=== PATIENT | male | born 1995 | race African-American/Black ===

== ENCOUNTER 2017-03-27 19:01 | Emergency (ER) | payer OTHER ==
[~2017-03-27] VITALS: Ht 170.2 cm; Wt 81.6 kg
[2017-03-27] MEDS ORDERED: IOHEXOL 240 MG/ML 50ML VIAL. ONE (19:39)
[2017-03-27] MEDS ORDERED: fentaNYL PF 100 MCG/2 ML VIAL IV PRN (19:45)
[2017-03-27] MEDS ORDERED: ONDANSETRON PF 4 MG/2 ML VIAL. IV ONE (19:45)
[2017-03-27] MEDS ORDERED: IV NORMAL SALINE 1,000ML 1,000 ML IV ONE (19:45)
[2017-03-27] MEDS ORDERED: IOHEXOL 300 MG/ML 75 ML VIAL. IV ONE (19:45)
[2017-03-27 19:52] LABS: BASO # 0.1 x10^3/uL (0.0-0.2); BASO % 1 % (0-3); EOS # 0.1 x10^3/uL (0.0-0.7); EOS % 2 % (0-3); HEMATOCRIT 39.9 % (39.0-53.0); HEMOGLOBIN 13.2 g/dL (13.0-17.5); LYMPH # 1.7 x10^3/uL (1.0-4.8); LYMPH % 20 % (24-48); MEAN CORPUSCULAR HEMOGLOBIN 29 pg (25-35); MEAN CORPUSCULAR HGB CONC 33 g/dL (31-37); MEAN CORPUSCULAR VOLUME 88 fL (79-100); MONO # 0.6 x10^3/uL (0.0-1.1); MONO % 7 % (0-9); NEUT # 6.2 x10^3uL (1.8-7.7); NEUT % 71 % (31-73); PLATELET COUNT 158 x10^3/uL (140-400); RED BLOOD COUNT 4.51 x10^6/uL (4.30-5.70); WHITE BLOOD COUNT 8.6 x10^3/uL (4.0-11.0)
[2017-03-27 19:57] LABS: CALCIUM 8.8 mg/dL (8.5-10.1); CREATININE 1.4 mg/dL (0.7-1.3); GFR 76.7; POTASSIUM 3.7 mmol/L (3.5-5.1)
[2017-03-27 19:58] LABS: FECAL OB PT NEGATIVE (NEG)
[2017-03-27 21:01] LABS: BILIRUBIN,URINE NEG (NEG); CLARITY,URINE HAZY; COLOR,URINE YELLOW; GLUCOSE,URINE NEG (NEG); NITRITE,URINE NEG (NEG); UROBILINOGEN,URINE 0.2 mg/dL (0.2 mg/dL)
[2017-03-27 21:02] LABS: BACTERIA,URINE FEW /HPF (0-FEW)
--- NOTE | 2017-03-27 21:24 | RAD ---
PROCEDURE CT abdomen and pelvis with contrast. HISTORY Inguinal hernia. Pain and swelling in lower abdomen for 1 week. TECHNIQUE Axial images and coronal and sagittal re-formatted images are provided. Oral contrast and 75 milliliters of intravenous Omnipaque 300 was administered without complication. Second series was obtained to include the entirety of the left inguinal hernia. One or more of the following individualized dose reduction techniques were utilized for this exam: 1. Automated exposure control. 2. Adjustment of the mA and/or kV according to patient's size. 3. Use of iterative reconstruction technique. COMPARISON None. FINDINGS There is atelectasis in the lung bases. There is no pleural effusion. The heart is not enlarged. Liver, gallbladder, spleen, pancreas, and adrenals are all grossly unremarkable. Kidneys are symmetrically perfused. There are areas of decreased attenuation within the renal parenchyma bilaterally, somewhat striated in appearance. There is no adjacent stranding. Please correlate with any concern for pyelonephritis and correlate with UA/UC. Aorta is normal caliber. There is no bowel obstruction or mural thickening. Normal appendix is probably visualized. Colon is grossly unremarkable. Bladder and prostate are unremarkable. Calcified phleboliths are noted. There are postsurgical changes in the proximal right femur. Partially included on the initial series is prominent fat in the left inguinal canal. This was covered completely on the repeat series. Repeat series demonstrates fat containing left inguinal hernia, with some stranding. There is also either fluid within the hernia sac or a hydrocele. Ultrasound may better evaluate this finding. IMPRESSION - Striated appearance to the kidneys with areas of decreased enhancement within the renal cortices bilaterally, appearance can be secondary to pyelonephritis, correlate with exam findings and UA/UC. - Fat containing left inguinal hernia. There is no herniated bowel loop. There is some stranding of the herniated fat and potentially fluid within the hernia sac versus hydrocele. Incarcerated herniated fat cannot be excluded. Please correlate clinically. Ultrasound may be of benefit. Electronically signed by: Bebeto Garza MD (March 27, 2017 21:23:50)
--- NOTE | 2017-03-27 22:19 | PHYS DOC ---
Past History Past Medical History: IBS Alcohol Use: None Drug Use: None Adult General Chief Complaint Chief Complaint: ABDOMINAL PAIN HPI HPI Patient is a 22 year old male who presents with increased pain to inguinal hernia. The patient states he was diagnosed with inguinal hernia last week at [facility]. Today he rolled over in bed & felt increased pain, unable to reduce hernia. He denies fevers/chills, vomiting, abdominal pain, dysuria, hematuria. Had a bowel movement today. he also reports blood in his stools, watery bright red blood x 3 days. No hematemesis. Denies use of blood thinners. He was supposed to have elective hernia repair but there were complications in scheduling as he is incarcerated. Denies history of abdominal surgeries. Review of Systems Review of Systems Constitutional: Denies fever or chills HENT: Denies nasal congestion or sore throat Respiratory: Denies cough or shortness of breath Cardiovascular: Denies chest pain GI: Denies abdominal pain, nausea, vomiting, bloody stools or diarrhea : Denies dysuria or hematuria, reports pain to hernia. Musculoskeletal: Denies back pain or joint pain Integument: Denies rash s Neurologic: Denies headache Allergies Allergies Allergies Coded Allergies Type Severity Reaction Last Updated Verified No Known Drug Allergies 03/27/17 No Physical Exam Physical Exam Constitutional: Well developed, well nourished, no acute distress, non-toxic appearance. HENT: Normocephalic, atraumatic, bilateral external ears normal, oropharynx moist, nose normal. Eyes: conjunctiva normal, no discharge. Cardiovascular: RRR, no murmurs, no edema. Lungs & Thorax: LCTAB, no wheezing, no respiratory distress. Abdomen: normal bowel sounds, soft, nontender, nondistended. : left scrotal tenderness & swelling with left inguinal fullness & tenderness. unable to reduce hernia. Skin: Warm, dry, no erythema, no rash. Back: No CVA tenderness. Extremities: No tenderness, no edema. Neurologic: Alert and oriented X 3, no focal deficits noted. Psychologic: Affect normal, judgement normal, mood normal. Current Patient Data Vital Signs Vital Signs Date Time Temp Pulse Resp B/P (MAP) Pulse Ox O2 Delivery O2 Flow Rate FiO2 03/27/17 19:01 97.8 60 18 100 Room Air Lab Results Laboratory Tests Test 03/27/17 19:25 03/27/17 19:36 03/27/17 20:13 Stool Occult Blood Negative (NEG) White Blood Count 8.6 x10^3/uL (4.0-11.0) Red Blood Count 4.51 x10^6/uL (4.30-5.70) Hemoglobin 13.2 g/dL (13.0-17.5) Hematocrit 39.9 % (39.0-53.0) Mean Corpuscular Volume 88 fL (79-100) Mean Corpuscular Hemoglobin 29 pg (25-35) Mean Corpuscular Hemoglobin Concent 33 g/dL (31-37) Red Cell Distribution Width 14.0 % (11.5-14.5) Platelet Count 158 x10^3/uL (140-400) Neutrophils (%) (Auto) 71 % (31-73) Lymphocytes (%) (Auto) 20 % (24-48) L Monocytes (%) (Auto) 7 % (0-9) Eosinophils (%) (Auto) 2 % (0-3) Basophils (%) (Auto) 1 % (0-3) Neutrophils # (Auto) 6.2 x10^3uL (1.8-7.7) Lymphocytes # (Auto) 1.7 x10^3/uL (1.0-4.8) Monocytes # (Auto) 0.6 x10^3/uL (0.0-1.1) Eosinophils # (Auto) 0.1 x10^3/uL (0.0-0.7) Basophils # (Auto) 0.1 x10^3/uL (0.0-0.2) Sodium Level 145 mmol/L (136-145) Potassium Level 3.7 mmol/L (3.5-5.1) Chloride Level 108 mmol/L (98-107) H Carbon Dioxide Level 29 mmol/L (21-32) Anion Gap 8 (6-14) Blood Urea Nitrogen 13 mg/dL (8-26) Creatinine 1.4 mg/dL (0.7-1.3) H Estimated GFR (Cockcroft-Gault) 76.7 Glucose Level 90 mg/dL (70-99) Calcium Level 8.8 mg/dL (8.5-10.1) Urine Collection Type Unknown Urine Color Yellow Urine Clarity Hazy Urine pH 6.5 Urine Specific [place] 1.010 Urine Protein Trace (NEG-TRACE) Urine Glucose (UA) Neg mg/dL (NEG) Urine Ketones (Stick) Neg mg/dL (NEG) Urine Blood Mod (NEG) Urine Nitrite Neg (NEG) Urine Bilirubin Neg (NEG) Urine Urobilinogen Dipstick 0.2 mg/dL (0.2 mg/dL) Urine Leukocyte Esterase Trace (NEG) Urine RBC 11-20 /HPF (0-2) Urine WBC 1-4 /HPF (0-4) Urine Squamous Epithelial Cells None /LPF Urine Bacteria Few /HPF (0-FEW) EKG EKG [] Radiology/Procedures Radiology/Procedures PROCEDURE: CT ABD PELV W/ORAL&IV CONTRAST PROCEDURE CT abdomen and pelvis with contrast. HISTORY Inguinal hernia. Pain and swelling in lower abdomen for 1 week. TECHNIQUE Axial images and coronal and sagittal re-formatted images are provided. Oral contrast and 75 milliliters of intravenous Omnipaque 300 was administered without complication. Second series was obtained to include the entirety of the left inguinal hernia. One or more of the following individualized dose reduction techniques were utilized for this exam: 1. Automated exposure control. 2. Adjustment of the mA and/or kV according to patient's size. 3. Use of iterative reconstruction technique. COMPARISON None. FINDINGS There is atelectasis in the lung bases. There is no pleural effusion. The heart is not enlarged. Liver, gallbladder, spleen, pancreas, and adrenals are all grossly unremarkable. Kidneys are symmetrically perfused. There are areas of decreased attenuation within the renal parenchyma bilaterally, somewhat striated in appearance. There is no adjacent stranding. Please correlate with any concern for pyelonephritis and correlate with UA/UC. Aorta is normal caliber. There is no bowel obstruction or mural thickening. Normal appendix is probably visualized. Colon is grossly unremarkable. Bladder and prostate are unremarkable. Calcified phleboliths are noted. There are postsurgical changes in the proximal right femur. Partially included on the initial series is prominent fat in the left inguinal canal. This was covered completely on the repeat series. Repeat series demonstrates fat containing left inguinal hernia, with some stranding. There is also either fluid within the hernia sac or a hydrocele. Ultrasound may better evaluate this finding. IMPRESSION - Striated appearance to the kidneys with areas of decreased enhancement within the renal cortices bilaterally, appearance can be secondary to pyelonephritis, correlate with exam findings and UA/UC. - Fat containing left inguinal hernia. There is no herniated bowel loop. There is some stranding of the herniated fat and potentially fluid within the hernia sac versus hydrocele. Incarcerated herniated fat cannot be excluded. Please correlate clinically. Ultrasound may be of benefit. Electronically signed by: Dana Garza MD (March 27, 2017 21:23:50) DICTATED AND SIGNED BY: DANA GARZA MD DATE: 03/27/172122[] Course & Med Decision Making Course & Med Decision Making Pertinent Labs and Imaging studies reviewed. (See chart for details) The patient presents with pain to inguinal hernia. Unable to reduce here. Gave pain meds. CT shows possibly incarcerated fat containing hernia. He had ongoing pain. Recommend transfer for urgent surgery. Patient agrees with plan of care. Discussed with Dr. Rogers of general surgery at [place] who agrees with transfer, admit to hospitalist. Will keep NPO & he will have surgery in the AM. Discussed with Dr. Soares who agrees to admit to inpatient status. The patient is being transferred in stable condition. [] Dragon Disclaimer Dragon Disclaimer This chart was dictated in whole or in part using Voice Recognition software in a busy, high-work load, and often noisy Emergency Department environment. It may contain unintended and wholly unrecognized errors or omissions. Departure Departure: Impression: Primary Impression: Inguinal hernia Disposition: XFER OTHER Condition: STABLE BUTCH OTERO MD March 27, 2017 22:19
[2017-03-27 23:10] VITALS: BP 115/60
== END 2017-03-27 23:00 | disposition short-term general hospital (02) ==
LOC: EEVIPCON 19:01 → ER 19:01
DX: K40.90 Unilateral inguinal hernia, without obstruction or gangrene, not specified as recurrent (principal); K58.9 Irritable bowel syndrome, unspecified
CPT/HCPCS: 36415; 74177; 80048; 81001; 82274; 85027; 87086; 96361; 96374; 96375; 99285; J2405; J3010; Q9967; J7030

== ENCOUNTER 2018-12-18 22:10 | Emergency (ER) | payer OTHER ==
[~2018-12-18] VITALS: Ht 170.2 cm; Wt 80.0 kg
--- NOTE | 2018-12-18 22:16 | ED.ADGEN ---
Past History Past Medical History: IBS Alcohol Use: None Drug Use: None Adult General Chief Complaint Chief Complaint ".. I was vomiting bad yesterday.. after bad hamburger.. and I got the red spots in my eyes... I goole it.. and said it was conjunctiva hemorrhage... But I had him in both eyes slight got worried and wanted be checked out tonight.." HPI HPI Patient is a 23 year old male inmate from [facility] who presents with above hx and complaints of bilateral subconjunctival hemorrhages. Patient denies any history coagulopathy. Patient reports a episode of severe vomiting after eating a bad hamburger. Patient reports no patient changes. No history immunosuppression. No history of trauma. Patient's abdomen discomfort has resolved. Review of Systems Review of Systems Constitutional: Denies fever or chills [] Eyes: Denies change in visual acuity, redness, or eye pain [][]history of bilateral sub-conjunctiva hemorrhages HENT: Denies nasal congestion or sore throat Respiratory: Denies cough or shortness of breath [] Cardiovascular: No additional information not addressed in HPI [] GI: Denies abdominal pain, nausea, vomiting, bloody stools or diarrhea [Give history of severe vomiting which is now resolved : Denies dysuria or hematuria [] Musculoskeletal: Denies back pain or joint pain [] Integument: Denies rash or skin lesions [] Neurologic: Denies headache, focal weakness or sensory changes [] Endocrine: Denies polyuria or polydipsia [] All other systems were reviewed and found to be within normal limits, except as documented in this note. Family History Family History non-contributory- no history of coagulopathy Current Medications Current Medications Current Medications Medications (Trade) Dose Ordered Sig/Donald Start Time Stop Time Status Last Admin Dose Admin Erythromycin (Romycin) 0.25 inch 1X ONCE 12/18/18 22:45 12/18/18 22:46 DC 12/18/18 23:09 0.25 INCH See nursing for home meds Allergies Allergies Allergies Coded Allergies Type Severity Reaction Last Updated Verified No Known Drug Allergies 03/27/17 No Physical Exam Physical Exam Constitutional: Well developed, well nourished, no acute distress, non-toxic appearance. [] HENT: Normocephalic, atraumatic, bilateral external ears normal, oropharynx moist, no oral exudates, nose normal. [] Eyes: PERRLA, EOMI, conjunctiva has bilateral cell conjunctiva hemorrhages. Limbus's are clear. Cornea is clear., no discharge. [] Neck: Normal range of motion, no tenderness, supple, no stridor. [] Cardiovascular:Heart rate regular rhythm, no murmur [] Lungs & Thorax: Bilateral breath sounds clear to auscultation [] Abdomen: Bowel sounds hyperactive, soft, no tenderness, no masses, no pulsatile masses. [] Skin: Warm, dry, no erythema, no rash. [] Multiple tattoos. No findings of splinter hemorrhages ,ecchymosis or petechiae Back: No tenderness, no CVA tenderness. [] Extremities: No tenderness, no cyanosis, no clubbing, ROM intact, no edema. [] Neurologic: Alert and oriented X 3, normal motor function, normal sensory function, no focal deficits noted. [] Psychologic: Affect anxious, judgement normal, mood normal. [] Current Patient Data Vital Signs Vital Signs Date Time Temp Pulse Resp B/P (MAP) Pulse Ox O2 Delivery O2 Flow Rate FiO2 12/18/18 23:10 62 18 120/38 (65) 97 Room Air 12/18/18 22:10 97.1 EKG EKG [] Radiology/Procedures Radiology/Procedures [] Course & Med Decision Making Course & Med Decision Making Pertinent Labs and Imaging studies reviewed. (See chart for details) Patient to avoid NSAIDs. Patient may take Tylenol. Patient use a fair a small amount of erythromycin ointment 4 times a day. Patient follow-up primary care. Patient return if any concerns. Patient currently declines any lab work. States he does not like needles. [] Final Impression Final Impression 1. Bilateral conjunctiva hemorrhages[] Dragon Disclaimer Dragon Disclaimer This electronic medical record was generated, in whole or in part, using a voice recognition dictation system. Discharge Summary Visit Information Final Diagnosis Problems Medical Problems: (1) Subconjunctival hemorrhage of both eyes Status: Acute Brief Hospital Course Allergies Allergies Coded Allergies Type Severity Reaction Last Updated Verified No Known Drug Allergies 03/27/17 No Vital Signs Vital Signs Date Time Temp Pulse Resp B/P (MAP) Pulse Ox O2 Delivery O2 Flow Rate FiO2 12/18/18 23:10 62 18 120/38 (65) 97 Room Air 12/18/18 22:10 97.1 Brief Hospital Course Mr. Chacon is a 23 old male inmate from [facility] who presented with bilateral sub-conjunctiva hemorrhages after active vomiting. Discharge Information Condition at Discharge: Improved, Stable Disposition/Orders: D/C to Home Dischare Medications Current Medications Erythromycin (Romycin) 0.25 inch 1X ONCE OU Last administered on 12/18/18at 23: 09; Admin Dose 0.25 INCH; Start 12/18/18 at 22:45; Stop 12/18/18 at 22:46; Status DC Dragon Disclaimer This chart was dictated in whole or in part using Voice Recognition software in a busy, high-work load, and often noisy Emergency Department environment. It may contain unintended and wholly unrecognized errors or omissions. DALJIT CAMPBELL MD Dec 18, 2018 22:16
[2018-12-18] MEDS ORDERED: ERYTHROMYCIN 0.5% OPHTH OINTMENT 1GM TUBE. OU ONE (22:45)
[2018-12-18 23:10] VITALS: BP 120/38
== END 2018-12-18 23:10 | disposition home or self-care (01) ==
LOC: ER 22:10
DX: H11.33 Conjunctival hemorrhage, bilateral (principal); R11.11 Vomiting without nausea; K58.9 Irritable bowel syndrome, unspecified
CPT/HCPCS: 99282

== ENCOUNTER 2018-12-23 17:12 | Emergency (ER) | payer OTHER ==
[2018-12-23 17:28] VITALS: BP 102/47
--- NOTE | 2018-12-23 17:53 | PHYS DOC ---
Past History Past Medical History: No Pertinent History Past Surgical History: No Surgical History Alcohol Use: None Drug Use: None Adult General Chief Complaint Chief Complaint: EYE PROBLEMS HPI HPI 23-year-old male returns emergency room with bilateral eye pain. The patient was seen by my colleague 5 days ago for bilateral conjunctival hemorrhages after vomiting. The patient has not had any more vomiting. He feels like the hemorrhage area has increased. He has been using erythromycin ointment as prescribed. He believes that his vision is more blurry at this time and now he has a pressure sensation behind his bilateral eyes. He has not follow-up with her PCP or an mill supervisor. He denies nausea, vomiting. He has been more tired than usual. He denies alcohol use, drug use, trauma. Review of Systems Review of Systems Constitutional: Denies fever or chills [] Eyes: change in visual acuity with bilateral redness [] HENT: Denies nasal congestion or sore throat [] Respiratory: Denies cough or shortness of breath [] Cardiovascular: No additional information not addressed in HPI [] GI: Denies abdominal pain, nausea, vomiting, bloody stools or diarrhea [] : Denies dysuria or hematuria [] Musculoskeletal: Denies back pain or joint pain [] Integument: Denies rash or skin lesions [] Neurologic: Headache. Denies focal weakness or sensory changes [] Endocrine: Denies polyuria or polydipsia [] All other systems were reviewed and found to be within normal limits, except as documented in this note. Current Medications Current Medications Current Medications Medications (Trade) Dose Ordered Sig/Donald Start Time Stop Time Status Last Admin Dose Admin Acetaminophen (Tylenol) 1,000 mg 1X ONCE 12/23/18 18:00 12/23/18 18:01 Metoclopramide HCl (Reglan) 10 mg 1X ONCE 12/23/18 18:00 12/23/18 18:01 Allergies Allergies Allergies Coded Allergies Type Severity Reaction Last Updated Verified No Known Drug Allergies 03/27/17 No Physical Exam Physical Exam Constitutional: Well developed, well nourished, no acute distress, non-toxic appearance. [] HENT: Normocephalic, atraumatic, bilateral external ears normal, oropharynx moist, no oral exudates, nose normal. [] Eyes: PERRLA, EOMI, conjunctiva with hemorrhages bilaterally, no discharge. Anterior chamber clear. No gross abnormality seen with non-dilated funduscopic exam.[] Neck: Normal range of motion, no tenderness, supple, no stridor. [] Cardiovascular:Heart rate regular rhythm, no murmur [] Lungs & Thorax: Bilateral breath sounds clear to auscultation [] Abdomen: Bowel sounds normal, soft, no tenderness, no masses, no pulsatile masses. [] Skin: Warm, dry, no erythema, no rash. [] Back: No tenderness, no CVA tenderness. [] Extremities: No tenderness, no cyanosis, no clubbing, ROM intact, no edema. [] Neurologic: Alert and oriented X 3, normal motor function, normal sensory function, no focal deficits noted. [] Psychologic: Affect normal, judgement normal, mood normal. [] Current Patient Data Vital Signs Vital Signs Date Time Temp Pulse Resp B/P (MAP) Pulse Ox O2 Delivery O2 Flow Rate FiO2 12/23/18 17:28 98.8 65 16 98 Room Air EKG EKG [] Radiology/Procedures Radiology/Procedures [] Impressions: CT scan of the head without contrast 12/23/2018 Clinical History: Headache. Recent head injury. Technique: Unenhanced, contiguous, 5 mm axial sections were obtained through the head. One or more of the following individualized dose reduction techniques were utilized for this study: 1. Automated exposure control. 2. Adjustment of the mA and/or kV according to patient size. 3. Use of iterative reconstruction technique. Findings: The ventricles and sulci are within normal limits in size and configuration. No focal area of abnormal attenuation is seen involving the brain parenchyma. No extra-axial fluid collection is seen. No skull fracture is seen. Impression: Negative study. Electronically signed by: Skyler Reyes MD (12/23/2018 6:03 PM) [facility] DICTATED AND SIGNED BY: SKYLER REYES MD DATE: 12/23/18 538 CC: CHUCKY HECTOR DO; PCP,NO Course & Med Decision Making Course & Med Decision Making Pertinent Labs and Imaging studies reviewed. (See chart for details) The patient continues to not want labs due to his fear of needles. His head CT is unremarkable. I'm not sure why he seems to be having more symptoms. He has hemorrhage, but there is his eye exam is normal. I have given him a gram of Tylenol and Reglan PO for his headache. The patient did attempt proper follow- up at the office was closed today because of the weather. I recommended that he continue to follow-up with a PCP and likely an mill supervisor. I do not see a reason to admit him. He is stable for discharge at this time. [] Dragon Disclaimer Dragon Disclaimer This electronic medical record was generated, in whole or in part, using a voice recognition dictation system. Departure Departure: Impression: Primary Impression: Conjunctival hemorrhage of both eyes Additional Impression: Headache Disposition: 01 HOME, SELF-CARE Condition: STABLE Referrals: PCP,NO (PCP) Additional Instructions: Please reschedule your follow-up appointment with a primary care physician. I believe he should also make an appointment with an mill supervisor for more detailed eye exam. Problem Qualifiers CHUCKY HECTOR DO Dec 23, 2018 17:53
[2018-12-23] MEDS ORDERED: METOCLOPRAMIDE 10 MG TABLET PO ONE (18:00)
[2018-12-23] MEDS ORDERED: ACETAMINOPHEN 500 MG TABLET PO ONE (18:00)
--- NOTE | 2018-12-23 18:06 | RAD ---
CT scan of the head without contrast 12/23/2018 Clinical History: Headache. Recent head injury. Technique: Unenhanced, contiguous, 5 mm axial sections were obtained through the head. One or more of the following individualized dose reduction techniques were utilized for this study: 1. Automated exposure control. 2. Adjustment of the mA and/or kV according to patient size. 3. Use of iterative reconstruction technique. Findings: The ventricles and sulci are within normal limits in size and configuration. No focal area of abnormal attenuation is seen involving the brain parenchyma. No extra-axial fluid collection is seen. No skull fracture is seen. Impression: Negative study. Electronically signed by: Skyler Chu MD (12/23/2018 6:03 PM) [facility]
== END 2018-12-23 18:25 | disposition home or self-care (01) ==
LOC: ER 17:12
DX: H11.33 Conjunctival hemorrhage, bilateral (principal); R51 Headache
CPT/HCPCS: 70450; 99284; J8597